=== PATIENT | female | born 1960 | race Caucasian/White ===

== ENCOUNTER → 2016-11-05 | Outpatient (CLI) | payer OTHER ==
--- NOTE | 2016-11-06 04:38 | RADIOLOGY REPORT PS360 ---
ELBOW-RT-3 VIEWS HISTORY: RT ELBOW PAIN ORDERING PHYSICIAN: THERESA CODY PATIENT AGE: 56 years COMPARISON: None FINDINGS: No fracture or dislocation. No lytic or blastic change. There is some minimal undulation of the cortex of the capitellum but no obvious sclerosis or subcortical lucency. No obvious displaced fat pad. Mild hypertrophic changes of the radial neck. IMPRESSION: 1. No acute fracture. 2. Nonspecific undulation of the cortex of the capitellum 3. Mild osteoarthritic change
== END ==
LOC: RAD 15:58
DX: M25.521 Pain in right elbow (principal)